=== PATIENT | male | born 1945 | race Caucasian/White ===

== ENCOUNTER 2019-09-09 15:24 | Emergency (ER) | payer OTHER ==
[2019-09-09 16:10] LABS: Mean Corpuscular HGB CONC 29.6 g/dL (32.0-36.0); Mean Corpuscular Hemoglobin 24.9 pg (27.0-31.0); Mean Platelet Volume 6.3 fL (7.4-10.4); Platelet Count 205 thou/uL (130-400); Red Blood Cell (RBC) Count 5.21 mill/uL (4.70-6.10); White Blood Cell (WBC) Count 5.3 thou/uL (4.8-10.8)
[2019-09-09 16:13] LABS: Bilirubin Negative (Negative); Blood, Urine Negative (Negative); Clarity Clear (Clear); Glucose, Urine (Dipstick) >=1000 mg/dL (Negative); Leukocyte Negative (Negative); Nitrite Negative (Negative); Protein, Urine (Dipstick) 30 mg/dL (Neg-Trace)
[2019-09-09 16:15] LABS: Bacteria/HPF Rare-Few HPF (None Seen); RBC/HPF None Seen HPF (0-3); Squamous Epithelial 0-3 HPF (0-3); WBC/HPF None Seen HPF (0-3)
[2019-09-09 16:22] LABS: ALT (SGPT) 23 U/L (8-55); AST (SGOT) 20 U/L (5-34); Albumin 4.4 g/dL (3.4-4.8); Alkaline Phosphatase 49 U/L (40-110); Anion Gap 16 mmol/L (10-20); BUN (Urea Nitrogen) 16 mg/dL (8.4-25.7); Bilirubin, Total 0.6 mg/dL (0.2-1.2); Calc. Creatinine Clearance 0 mL/min (70-130); Calcium 9.3 mg/dL (7.8-10.44); Carbon Dioxide 25 mmol/L (23-31); Chloride 105 mmol/L (98-107); Estimated GFR-MDRD 50; Globulin 2.9 g/dL (2.4-3.5); Glucose 162 mg/dL (83-110); Potassium 4.2 mmol/L (3.5-5.1); Protein, Total 7.3 g/dL (5.8-8.1); Sodium 142 mmol/L (136-145)
[2019-09-09 16:29] LABS: #Eosinphils 0.4 thou/uL (0.0-0.7); #Lymphocytes 1.3 thou/uL (1.20-3.40); #Monocytes 0.4 thou/uL (0.11-0.59); #Neutrophils 3.2 thou/uL (1.40-6.50); %Basophils 0.9 % (0.0-1.0); %Eosinophils 7.2 % (0.0-10.0); %Lymphocytes 24.2 % (21.0-51.0); %Monocytes 7.5 % (0.0-10.0); %Neutrophils 60.2 % (42.0-75.0)
[2019-09-09 16:30] LABS: MDiff Complete? YES
--- NOTE | 2019-09-09 17:59 | CT ---
CT ABDOMEN AND PELVIS WITHOUT CONTRAST: 09/09/19 A noncontrast study was done for evaluation of lower abdominal pain. The liver and spleen are perhaps a touch generous in size but no space occupying disease was seen wit hin the limitations of this noncontrast study. The pancreas, adrenal glands, gallbladder, kidneys, an d abdominal aorta showed no acute findings. There is calcification of the aorta. The bowel shows no dilation or inflammatory change in or around it. There is no sign of diverticuliti s. No free air or free fluid was noted. There is a fat filled umbilical hernia present containing onl y fat and no bowel. Its current significance is doubtful. CT of the pelvis shows no pelvic masses, fluid collections or inflammatory changes. There is no bowel wall thickening. Prostate is generous in size at 5.8 cm in width. The fat planes around it are clear , however. No acute bony changes were seen of concern. IMPRESSION: No acute abdominal or pelvic findings to explain the patient's lower abdominal pain. Preliminary report called to Yon[facility] in ER at [id number] on 09/09/19. POS: HOME
== END 2019-09-09 16:58 | disposition home or self-care (01) ==
LOC: BURERS 15:24
DX: R10.32 Left lower quadrant pain (principal); K42.9 Umbilical hernia without obstruction or gangrene; E11.9 Type 2 diabetes mellitus without complications; I10 Essential (primary) hypertension; F32.9 Major depressive disorder, single episode, unspecified; Z79.899 Other long term (current) drug therapy; Z79.82 Long term (current) use of aspirin; Z79.4 Long term (current) use of insulin
CPT/HCPCS: 74176; 80053; 81003; 81015; 83605; 85025; 96360